=== PATIENT | male | born 1955 | race Caucasian/White ===

== ENCOUNTER 2017-02-16 17:53 | Emergency (ER) | payer OTHER ==
--- NOTE | 2017-02-16 18:51 | ED UPPER/LOWER EXTREMITY COMPL ---
History of Present Illness General Chief Complaint: Hand or Wrist Injury Stated Complaint: LFT FINGER INJURY Source: patient Exam Limitations: no limitations Vital Signs & Intake/Output Vital Signs & Intake/Output Vital Signs Date Time Temp Pulse Resp B/P B/P Pulse O2 O2 Flow FiO2 Mean Ox Delivery Rate 02/16 1905 70 18 154/76 99 Room Air 02/16 1857 99 Room Air 02/16 1759 99.7 69 20 170/84 97 Room Air Allergies Coded Allergies: No Known Allergies (02/16/17) Reconcile Medications Multivitamin (Multi-Day Vitamins) 1 EACH TABLET 1 TAB PO DAILY SUPPLEMENT ( Reported) Triage Note: PER PT CAUGHT L INDEX FINGER IN DOOR THIS AM,NAIL ECCHYMOTIC SWELLING AT NAIL BED Triage Nurses Notes Reviewed? yes Onset: Abrupt Duration: constant Timing: single episode today Severity: mild Severity Numbers: 3 Method of Injury: direct blow HPI: Patient is a 61-year-old male who presents to emergency room stating that earlier today patient accidentally closed the house door on his finger resulting in acute onset of 5/10 localized left second digit index finger pain swelling and bruising to his nail. Patient did not take any medications prior to arrival. Patient is right arm dominant Past History Travel History Traveled to [place] past 21 day No Medical History Any Pertinent Medical History? none Neurological: NONE EENT: NONE Cardiovascular: NONE Respiratory: NONE Gastrointestinal: NONE Hepatic: NONE Renal: NONE Musculoskeletal: NONE Psychiatric: NONE Endocrine: NONE Surgical History Surgical History: non-contributory Psychosocial History What is your primary language Panamanian Tobacco Use: Never used Family History Hx Contributory? No Review of Systems Review of Systems Constitutional: Reports: no symptoms. EENTM: Reports: no symptoms. Respiratory: Reports: no symptoms. Cardiovascular: Reports: no symptoms. Gastrointestinal/Abdominal: Reports: no symptoms. Genitourinary: Reports: no symptoms. Musculoskeletal: Reports: see HPI, joint pain. Skin: Reports: see HPI. Neurological/Psychological: Reports: no symptoms. Hematologic/Endocrine: Reports: no symptoms. Immunological: Reports: no symptoms. All Other Systems: Reviewed and Negative Physical Exam Physical Exam General Appearance: no apparent distress, alert, comfortable Neurologic/Tendon: normal sensation, normal motor functions, normal tendon functions, responds to pain Skin: intact, warm/dry Diagram Hands Back 1) NOTED 20% PROXIMAL SUBUNGUAL HEMATOMA NOTED MILD SWELLING AND TENDERNESS SKIN INTACT FULL AROM WITH FLEXION AND EXTENSION DERMATOMES INTACT CAPILLARY REFILL LESS THAN 2 SECOND Progress Differential Diagnosis: arterial insufficiency, compartment syndrome, contusion, dislocation, DVT, fracture, gout, septic arthritis, sprain, tendon injury Plan of Care: Orders Procedure Date/time Status XRY-FINGERS, LEFT 02/16 1803 Active No osseous injury noted on x-ray Patient had minimal subungual hematoma and which he did not require at this time trephination patient will be treated for concerns of contusion (YOVANY KAN,ANGELITA) Diagnostic Imaging: Viewed by Me: Radiology Read. Radiology Impression: no acute abnormality Comments: PATIENT: FRED JOLLY PRESENT AGE: 61 PATIENT ACCOUNT NO: [id number] : 56 LOCATION: [facility] ORDERING PHYSICIAN: ANGELITA KAN SERVICE DATE: 02/16/17 EXAM TYPE: RAD - XRY-FINGERS, LEFT EXAMINATION: XR FINGER, LEFT CLINICAL INFORMATION: Pain COMPARISON: None TECHNIQUE: Three views of the left left second finger. FINDINGS: There is no acute fracture or dislocation. Mild soft tissue swelling of the index finger is present. No lytic or sclerotic bony lesions. Mild degenerative changes of the DIP joints seen. No radiodense foreign body or soft tissue air. IMPRESSION: Mild soft tissue swelling of the second finger without evidence of acute fracture or dislocation. DICTATED BY: BRYCE OLIVAS MD DATE/TIME DICTATED:02/16/171848 BATTERY LOADER:CAMERON Departure Departure Disposition: HOME OR SELF CARE Condition: Stable Clinical Impression Primary Impression: Contusion of finger of left hand Secondary Impressions: Subungual hematoma of finger of left hand Referrals: EVA COLEMAN,DAGMAR Hunter (PCP/Family) Additional Instructions: As discussed begin icing the area 20 minutes every 2 hours begin over-the- counter for pain and inflammation. Begin [id number] ibuprofen 600 mg every 8 hours for pain and inflammation. If symptoms worsen return to emergency room. If no better in one week follow-up with orthopedic Dr. William. Departure Forms: Customer Survey General Discharge Information
--- NOTE | 2017-02-16 18:54 | RADIOLOGY REPORT ---
EXAMINATION: XR FINGER, LEFT CLINICAL INFORMATION: Pain COMPARISON: None TECHNIQUE: Three views of the left left second finger. FINDINGS: There is no acute fracture or dislocation. Mild soft tissue swelling of the index finger is present. No lytic or sclerotic bony lesions. Mild degenerative changes of the DIP joints seen. No radiodense foreign body or soft tissue air. IMPRESSION: Mild soft tissue swelling of the second finger without evidence of acute fracture or dislocation.
[2017-02-16 19:05] VITALS: BP 154/76
[2017-02-16] MEDS ORDERED: MULTI-DAY VITA1 EACH PO (19:20)
== END 2017-02-16 19:37 ==
LOC: ERH 17:53
DX: S60.122A Contusion of left index finger with damage to nail, initial encounter (principal); W23.0XXA Caught, crushed, jammed, or pinched between moving objects, initial encounter; Y92.9 Unspecified place or not applicable; Y93.9 Activity, unspecified
CPT/HCPCS: 73140-LT